=== PATIENT | female | born 1965 | race Caucasian/White ===

== ENCOUNTER 2016-10-04 05:52 | Day surgery (SDC) | payer OTHER ==
[2016-10-04] VITALS (19 sets, daily range): BP systolic 93–114; BP diastolic 55–76; PULSE 62–86; RESP 10–20; O2SAT 97–100
[~2016-10-04] VITALS: Ht 160 cm; Wt 68.9 kg
[~2016-10-04 05:52] MED LIST: DOXY-226 PO; IBUP200C11 PO; Lactated Ringer's 1,000 ML IV ONE; SIMV20TA4 PO
[2016-10-04] MEDS ORDERED: Rocuronium 10 mg/mL 5 mL Inj ONE (05:53)
[2016-10-04] MEDS ORDERED: Morphine PF 1 mg/mL 10 mL Inj ONE (05:53)
[2016-10-04] MEDS ORDERED: Ketamine 10 mg/mL 20 mL Inj ONE (05:53)
[2016-10-04] MEDS ORDERED: Propofol 10,000 mCg/mL 20 mL Inj ONE (05:53)
[2016-10-04] MEDS ORDERED: Neostigmine 1 mg/mL 5 mL Inj ONE (05:53)
[2016-10-04] MEDS ORDERED: Glycopyrrolate 0.2 mg/mL 5 mL Inj ONE (05:53)
[2016-10-04] MEDS ORDERED: Dexamethasone 4 mg/mL Inj ONE (05:53)
[2016-10-04] MEDS ORDERED: MetoCLOpramide 5 mg/mL 2 mL Inj ONE (05:53)
[2016-10-04] MEDS ORDERED: Ondansetron 2 mg/mL 2 mL Inj ONE (05:53)
[2016-10-04] MEDS ORDERED: CeFAZolin 2 Gm/50 mL D5W IV Premix IV ONE (06:00)
--- NOTE | 2016-10-04 07:22 | PCM.HPANE ---
Patient Data Surgeon Admitting Provider: Attending Provider:Latrice Catherine MD Primary Care Physician:Char Tao Other Provider:Zac Mares Anesthesia Reason for Visit Right Renal Cyst RIGHT RENAL CYST Ht/WT & BMI Height (Feet): 5 Height (Inches): 3.00 Weight (Kilograms): 68.9 Body Mass Index 26.00 Allergies Coded Allergies: codeine (Verified Adverse Reaction, Severe, Nausea,Vomiting,rash, 09/30/16) minocycline (Verified Adverse Reaction, Severe, decreased wbc's, 09/30/16) Past Anesthesia History Anesthesia History: Denies:: Abnormal Airway, Anesthesia Reactions, Difficult Intubation, Fam Anesthesia Reaction, Fam Malignant Hypertherm, Malignant Hyperthermia Diabetes History Hx Diabetes?: No Current Bedside Blood Glucose: 100 MRSA MRSA: No Medications Home Meds Incl Beta Richy: No Reported Medications Ibuprofen (Advil)200 Mg [id number] Mg PO Q6H PRN prn 09/30/16 Simvastatin 20 Mg Yemllr56 Mg PO HS 30 Days Ref 0 05/30/[address] 100 Mg Tablet.dr100 Mg PO DAILY 10 Days Ref 0 05/30/14 Discontinued Reported Medications Ibuprofen (Advil)200 Mg [id number] Mg PO Q6 PRN For Pain 05/30/14 History History of ENT Problems?: Yes HEENT History: Positive for:: Hearing Problem Denies:: Abnormal Airway Difficult Intubation Dysphagia Other HEENT Pertinent History: HX PAROTITIS Hx of Heart Problems?: Yes Cardiovascular History: Positive for:: Hypertension (HYPERLIPIDEMIA) Denies:: AICD Atrial Fibrillation Chest Pain Heart Murmur Pacemaker Valvular Heart Disease Hx of Respiratory Problem?: No Respiratory History: Denies:: Asthma COPD Cough Hemoptysis Pneumonia Tuberculosis Use of C-PAP Machine Hx Neurologic Problems?: Yes Neurological History: Denies:: CVA Other Neurological Pertinent: HX HSV Hx of GI Problems?: Yes Gastrointestinal History: Positive for:: 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 (ACNE) Denies:: Pressure Ulcers Hx Musculoskeletal Problems?: No Musculoskeletal History: Positive for:: Osteoarthritis Denies:: Back Injury (C/OF BACK PAIN) Joint Replacement Hx of Psycho/Social Problems?: No Psycho Social History: Denies:: Anxiety Hx Depression Hx Surgeries?: Yes (APPY,LT BUNIONECTOMY W/ POSTOP HDWRE REMOVAL,LT INGUINAL HERNIA RPR) Hx Any Other Health Problems?: Yes Other History: Denies:: Cancer Endocrine Disease Hospitalization Thyroid Disease History Blood Transfusions: Denies:: Blood Transfusions Hx Diabetes: NoBedside Blood Glucose: 100 Hx Alcohol Use: YesAlcoholic Drinks Per Day: 2-3/WEEK Smoking Status: Never Smoker Have You Smoked inLast 12 mo: No Stop/Bang Treated for Sleep Apnea?: No Do You Have a CPAP Machine?: No S-Snoring: Do You Snore Loudly: No T-Tired: feel tired, fatigued: No O-Obsered: Observed not breath: No P-Blood Pressure: treated: No B- Body Mass Index > 35 kg/m2: No A- Age over 50: Yes N- Neck Large Circumference: No G- Gender Male: No CANDIS Total Score: 1 CANDIS Risk Assessment: Low Risk, <3 Yes Risk Assessment Category Category 1A: Patient has history of documented sleep apnea, and HAS NOT received any narcotic, sedative or anesthesia administration during this stay. Category 1B: Patient has history of documented sleep apnea, and HAS received any narcotic , sedative or anesthesia administration during this stay Category 2: Patient has SUSPECTED Obstructive Sleep Apnea, and HAS received any narcotic , sedative or anesthesia administration during this stay. Category 3: Patient has SUSPECTED Obstructive Sleep Apnea and HAS NOT received narcotic, sedative or anesthesia administration during this stay. Category 4: Outpatient in Procedural Areas with known sleep apnea or who screen positive for High Risk via the STOP/BANG questionnaire. Exam Exam Vital Signs Vital Signs Date Time Temp Pulse Resp B/P Pulse Ox O2 Delivery O2 Flow Rate FiO2 10/04/16 07:12 36.7 69 16 113/76 99 Room Air General Appearance: Oriented X3 HEENT/AIRWAY: MP 2 Lungs: Normal Air Movement Heart: Regular Rate/Rhythm Meds/Labs/Diagnostics Admission Meds Current Medications Lactated Ringer's (Lr) 1,000 ml @ 120 mls/hr Q8H20M ONCE IV Last administered on 10/04/16t 07:05; Start 10/04/16 at 05:00; Stop 10/04/16 at 13:19 Bedside Blood Glucose: 100 Plan Impression Patient chart reviewed, patient interviewed and anesthestic plan with risks, benefits, and alternatives discussed, and informed consent obtained. NPO Status: 1900 ASA Physical Status: ASA2 Mod Systemic Disease Anesthetic Support Modalities: Arterial Line Anesthetic Plan: GA, SAB Bene/Risks/Altern/Consents: Yes HP Complete Prior to Induction: Yes Papito Coyle MD Oct 04, 2016 07:22
[2016-10-04] MEDS ORDERED: Lactated Ringer's 500 ML IV PRN (08:14)
[2016-10-04] MEDS ORDERED: Phenylephrine 10,000 mCg/mL Inj IVPUSH PRN (08:15)
[2016-10-04] MEDS ORDERED: Ondansetron 2 mg/mL 2 mL Inj IVPUSH PRN ×2 (08:15→21:50)
[2016-10-04] MEDS ORDERED: fentaNYL-PF 50 mCg/mL 2 mL Inj IVPUSH PRN (08:15)
[2016-10-04] MEDS ORDERED: Dexamethasone 4 mg/mL Inj IVPUSH PRN (08:15)
[2016-10-04] MEDS ORDERED: EPHEDrine Sulfate 50 mg/mL Inj IVPUSH PRN (08:15)
[2016-10-04] MEDS ORDERED: HYDROmorphone 1 mg/mL Inj IVPUSH PRN ×2 (08:15→10:25)
[2016-10-04] MEDS ORDERED: MetoCLOpramide 5 mg/mL 2 mL Inj IVPUSH PRN (08:15)
[2016-10-04] MEDS ORDERED: Labetalol 5 mg/mL 4 mL Inj IV PRN (08:15)
[2016-10-04] MEDS ORDERED: diphenhydrAMINE 25 mg Capsule PO PRN (10:25)
[2016-10-04] MEDS ORDERED: HYDROmorphone 0.5 mg/0.5 mL iSecure Syringe ONE (10:45)
--- NOTE | 2016-10-04 11:17 | PCM.ANEP2 ---
Post Anesthesia Evaluation ASA/CMS Post Anesthesia VS in Patient's Normal Range?: Yes Resp Stable; Airway Patent?: Yes CV Function & Hydration Stable: Yes Mental Status Recovered?: Yes Pain control Satisfactory?: Yes N/V Control Satisfactory?: Yes Papito Coyle MD Oct 04, 2016 11:17
--- NOTE | 2016-10-04 11:17 | PCM.ANEP1 ---
Post Anesthesia Phase 1 PACU Phase 1 Assessment Vital Signs Vital Signs Date Time Temp Pulse Resp B/P Pulse Ox O2 Delivery O2 Flow Rate FiO2 10/04/16 11:00 72 14 101/63 99 Room Air 10/04/16 10:55 36.1 79 16 101/61 99 Room Air 10/04/16 10:50 81 16 104/66 99 Room Air 10/04/16 10:45 80 17 106/65 100 Room Air 10/04/16 10:40 78 15 108/69 100 Simple Mask 8 10/04/16 10:35 81 16 111/69 100 Simple Mask 8 10/04/16 10:30 36.4 83 16 114/70 100 Simple Mask 8 10/04/16 10:30 16 100 10/04/16 07:12 36.7 69 16 113/76 99 Room Air Anesthetic Administered: GA, SAB Level of Alertness: Awake, talking Pain: No Nausea or Vomiting: No Airway Device: Oralpharangeal Airway Lungs: Normal Air Movement Dermatome Level: Full Sensation Papito Coyle MD Oct 04, 2016 11:17
[2016-10-04] MEDS: Lactated Ringer's 1,000 ML IV SCH ×2 (12:00→12:37)
[2016-10-04] MEDS: D5 0.45% NaCl + KCl 20 mEq/L 1,000 ML IV SCH ×2 (12:45→20:53)
--- NOTE | 2016-10-04 13:02 | NUR ---
Post-op Pt. was transferred from PACU to [facility] at 1210. On arrival, she was alert, oriented, ALFORD, full sensations. She denied pain but reported discomfort of R. shoulder 2/10. Spence catheter patent and drained clear yellow urine. Abdominal laparoscopic sites (x3) are well-approximated (Dermabond, no dressing). Pt. was oriented to room, call light, TV, phone, Spence cath and bed.
--- NOTE | 2016-10-04 18:46 | NUR ---
Activity Pt. get OOB to chair in the late afternoon. She vomiting twice with movement. Dr. Catherine aware. Continue IV fluid due to vomiting. Spence catheter to be removed this evening.
--- NOTE | 2016-10-04 21:41 | OP ---
[address] [address] OPERATIVE REPORT PATIENT: ROB LINDQUIST : 1965 MR#: [id number] ADMIT: 10/04/2016 JOB ID: [id number] DATE OF SURGERY: 10/04/2016 PREOPERATIVE DIAGNOSIS(ES): Right renal cyst. POSTOPERATIVE DIAGNOSIS(ES): Right renal cyst. PROCEDURE PERFORMED: Right laparoscopic renal cyst decortication. SURGEON: Latrice Catherine MD VINEYARDIST: Telly Vines MD (his expert assistance was required for manipulation of the tissues) and Danika Love PA-C. FINDINGS: A 10 cm right upper pole renal cyst (approximately 500 mL of cyst volume). ANESTHESIA: General. ESTIMATED BLOOD LOSS: Less than 10 mL. DRAINS: A Spence catheter to the bladder. SPECIMENS: 1. Cyst fluid for cytology. 2. Right renal cyst wall COMPLICATIONS: None. CONDITION: Stable. INDICATIONS FOR THE PROCEDURE: The patient is a 51-year-old woman with a 10 cm right upper pole renal cyst that has been causing her symptoms. She now presents for laparoscopic cyst decortication after understanding her options, risks, and benefits. DESCRIPTION OF PROCEDURE: After informed consent was obtained, the patient was taken to the operating room. A time-out was performed identifying correct patient, surgical site, and procedure. General anesthesia was smoothly induced. She was given intravenous antibiotics just prior to the start of procedure. She was placed in the left lateral decubitus position over a beanbag and gel pad. All pressure points were identified and appropriately padded. It should be noted that the patient had a Spence catheter placed after general anesthesia had been induced. Her abdomen and flank were then prepped and draped in a sterile fashion. Considering the patient had an appendectomy, a stab incision was made approximately 2-3 cm superior to the umbilicus in the midline. Veress needle was used. Saline drop test was performed, identifying intraperitoneal location of the Veress needle. The abdomen was then insufflated. The Veress needle skin incision was then elongated to accommodate a 12 mm trocar. Intraperitoneal identification was verified with a 30 degree lens. There was no inadvertent injury to any of the surrounding tissues. A right lower quadrant 10/12 trocar was then placed under direct vision. A 5 mm trocar was placed within the midclavicular line a few centimeters inferior to the subcostal margin. At the tip of the 12th rib, another 5 mm trocar was placed for the liver retractor. Adhesions were lysed in the right lower quadrant consistent with the patient's history of open appendectomy. The white line of Toldt was incised. The cyst could be seen posterior to the liver as well as laterally. The liver retractor was then placed for gentle retraction of the liver. The cyst was then dissected free of its attachments. A laparoscopic needle was used to take some of the fluid off of the cyst and to relieve it of its tension. Endoshears were then used to incise the cyst and the suction automation architect was used to evacuate approximately 500 mL of cyst fluid. This was passed off the table to the pathologist for cytology. The cyst wall was then removed using the Thunderbeat device. The crater of the cyst was then evaluated. It appeared consistent with a cyst. Argon laser beam coagulation was used at the rim of the removed cyst wall. Surgicel was placed in the defect and FloSeal placed over it. The liver was then replaced in orthotopic position as well as the colon. The Gautam-Thomasen device was used loaded with 0-Vicryls at the 10/12 port sites and these were then closed. The skin incisions were then closed with 4-0 Monocryl as well as Dermabond. All instrument, sponge, and needle counts were correct at the end of the procedure. The patient appeared to tolerate the procedure well without apparent complications. She was then reversed from general anesthesia and taken to PACU in good and stable condition. MICHAEL
[2016-10-04] MEDS: Ondansetron 8 mg ODT Tablet PO PRN (21:53)
[2016-10-05 00:19] VITALS: BP 100/59; PULSE 80; RESP 20; O2SAT 97
[2016-10-05] MEDS: HYDROcodone-APAP 5-325 mg Tablet PO PRN ×3 (04:35→12:29)
[2016-10-05] MEDS: D5 0.45% NaCl + KCl 20 mEq/L 1,000 ML IV SCH (04:37)
[2016-10-05] MEDS: Ondansetron 8 mg ODT Tablet PO PRN ×3 (04:39→12:29)
[2016-10-05 04:40] VITALS: BP 96/61; PULSE 68; RESP 20; O2SAT 98
--- NOTE | 2016-10-05 05:27 | NUR ---
Nausea / low B/P / velázquez Pt continued to have nausea and emesis which escalates with movement. Obtained order for Zofran, first dose appeared to be working well until pt got up and ambulated in room which was followed by emesis again. 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 Velázquez remains in until able to mobilize without emesis; IV fluids continue for soft B/P. Hourly rounding ongoing.
--- NOTE | 2016-10-05 08:58 | PCM.PNSURG ---
Subjective Date of Service: Oct 05, 2016 Date of Service: Oct 05, 2016 Visit Information: Reason for Visit Right Renal Cyst Surgery/Surgery Date LAP R RENAL CYST DECORTICATION 10/04/16 Post-Op Day # 1 Date of Admission: Oct 04, 2016 at 11:39 Hospital Day # 2 Subjective: Ms Porras reports vomiting yesterday, but she is holding down toast this AM. She seemed to become nauseated with walking. Her velázquez is in place. She has come discomfort, seemingly from diaphragmatic irritation, near her B clavicles. Postop General: No Shortness of Breath Gastrointestinal: Vomitting Pain Management: PO, IV Push Postop Activity: Ambulating in Room Only Objective Vital Sign- Last 8 Hours Date Time Temp Pulse Resp B/P Pulse Ox O2 Delivery O2 Flow Rate FiO2 10/05/16 04:40 36.9 68 20 96/61 98 Room Air Intake and Output- Last 8 Hour 10/05/16 Cumulative From/Thru 07:00 09/30/16 13:11 - 10/05/16 06:49 Intake Total 1771 ml 4720 ml Output Total 2500 ml 3950 ml Balance -729 ml 770 ml Intake Oral 450 ml 1190 ml IV Total 1321 ml 3530 ml Output Urine Total 1200 ml 1500 ml Emesis 1300 ml 2450 ml General: Alert Abdomen: Benign, Soft, Appropriately tender, Other (wounds c/d/i) Extremities: Warm Neuro: Cranial Nerves 2-12 nl Catheters: Urethral [address] Velázquez Assessment & Plan Impression POD#1 RIGHT lap renal cyst decortication Problems: Plan We reviewed DC planning - Restrictions/work reviewed - Wound care reviewed DC planning later today Reviewed pain plan - Outpt Rxs Latrice Catherine MD Oct 05, 2016 08:58
[2016-10-05 09:20] VITALS: BP 125/75; PULSE 73; RESP 15; O2SAT 99
--- NOTE | 2016-10-05 11:51 | PCM.DISURG ---
Surgical Discharge Instruction Date of Service Oct 05, 2016 Dates of Hospitalization Date of Hospital Admission 10/04/16 Providers Admitting Physician: Primary Care Physician: Char Tao Attending Physician: Latrice Catherine MD Discharge Diagnosis Discharge Diagnosis RIGHT renal cyst Post Operative diagnosis Same Diet Discharge Diet: No restrictions Activity Discharge Activity-General: No lifting >10 pounds for 4-6 weeks, No driving while taking narcotic Dressing and Incisional Care Hygiene: May shower, NO bathtub, hot tub or whirlpool Follow Up Plan Follow Up Plan F/U with Dr Catherine in 2 wks for wound check Call your provider for: Fever, Chills, Shortness of breath, Vomiting, Increasing wound pain, Discharge @ incision, pus discharge Latrice Catherine MD Oct 05, 2016 11:51
--- NOTE | 2016-10-05 11:53 | PCM.DC.SUR ---
Discharge Summary Date of Service: Oct 05, 2016 Date of Hospital Admission: 10/04/16 Date of Operation(s): 10/04/16 Date of Discharge: 10/05/16 Diagnosis at Time of Discharge RIGHT renal cyst Problems: Operation RIGHT lap renal cyst decortication Brief History and Physical: Ms Porras is a 51 F with symptomatic RIGHT renal cyst. Hospital Course: 10/04/16 underwent procedure. Postop, she had n/v w ambulation. By the time of DC , she was tolerating diet, ambulating, and pain was controlled. Disposition: Home Follow-up Plan: [address] (Doxycycline Hyclate DR) 100 Mg Tablet.dr 100 MG PO DAILY (Reported) Ibuprofen (Advil) 200 Mg Capsule 200 MG PO Q6H PRN PRN prn (Reported) Simvastatin (Simvastatin) 20 Mg Tablet 20 MG PO HS (Reported) Latrice Catherine MD Oct 05, 2016 11:53
--- NOTE | 2016-10-05 11:54 | PATH ---
SURGICAL PATHOLOGY Attending Physician:Latrice Catherine, CASE STATUS: Signed Out PATIENT NAME: ROB LINDQUIST PID: [id number] : 1965 DATE COLLECTED:10/04/2016 17:18 SPECIMEN: CYST, NOS CLINICAL HISTORY: A: RIGHT RENAL CYST WALL FINAL DIAGNOSIS: 1.RIGHT RENAL CYST WALL: BENIGN FIBROUS TISSUE WITH DYSTROPHIC CALCIFICATION. NO RENAL PARENCHYMA IDENTIFIED. NO EVIDENCE OF NEOPLASIA. ICD10 CODE N28.89 GROSS DESCRIPTION: The specimen is received in one formalin filled container labeled with the patient's name, sublabeled "right renal cyst wall" and consists of a light mcfadden portion of tissue which measures 6.0 x 3.5 x 0.4 CM. 3 technical support representative sections are submitted in one cassette. 10/04/2016 [facility] MICRO DESCRIPTION: See diagnosis. ICD-9 CODES: CPT CODES: 1: 24941 Electronically Signed Out Rosita Ortega MD [facility] Pathology [facility] [address], [place] [address] Technical component performed at [facility], [address] [place] [address] Ave[address], [place], [address]
--- NOTE | 2016-10-05 15:42 | NUR ---
Discharge: Pt nausea declined throughout am. Pain under control with 1 Vicodin. Spence dc'd and pt voiding adequate amounts of urine after removal. Scripts and Dc instructions given and patient and bharathi acknowledged understanding. Pt walked to private vehicle at approx 2pm.
--- NOTE | 2016-10-06 16:20 | PATH ---
SURGICAL PATHOLOGY Attending Physician:Latrice Catherine, CASE STATUS: Signed Out PATIENT NAME: ROB LINDQUIST PID: [id number] : 1965 CASE NUMBER: [id number] DATE COLLECTED:10/04/2016 00:00 SPECIMEN: Right Renal Cyst Fluid Thin Prep CLINICAL HISTORY: Right Renal Cyst Fluid Right Renal Cyst FINAL DIAGNOSIS: 1.RIGHT RENAL CYST FLUID CYTOLOGY: HISTIOCYTES AND PROTEINACEOUS FLUID. NO CYTOLOGIC EVIDENCE OF MALIGNANCY. ICD10 CODE N28.89 GROSS DESCRIPTION: Received fresh on 10/05/2016 is approximately 50 cc of clear yellow fluid. Prepared are one cell block and one ThinPrep slide. hsk/ MICRO DESCRIPTION: One ThinPrep cytology slide and one cell block slide are examined. These show a proteinaceous background with a few histiocytes. No cytologically malignant cells identified. ICD-9 CODES: CPT CODES: 1: 20976, 87708 Electronically Signed Out Rosita Ortega MD [facility] Pathology [facility] [address], [place] [address] Technical component performed at [facility], [facility] [address], [place], [address]
== END 2016-10-05 14:40 | disposition home or self-care (01) ==
LOC: SAS 05:52 → UNDOADMIN 11:39 → OSC 11:39 → SAS 10-05 14:40
PROVIDERS: ATTEND Urology
DX: N28.1 Cyst of kidney, acquired (principal); N28.89 Other specified disorders of kidney and ureter; E78.5 Hyperlipidemia, unspecified; H91.90 Unspecified hearing loss, unspecified ear
CPT/HCPCS: 36415; 50541; 86922; J0690; J1100; J1170; J2250; J2274; J2405; J2710; J2765; J7120